=== PATIENT | female | born 1990 | race Caucasian/White ===

== ENCOUNTER 2018-01-19 00:58 | Emergency (ER) | payer MEDICAID ==
[~2018-01-19] VITALS: Ht 157.5 cm; Wt 63.5 kg
[~2018-01-19 00:58] MED LIST: ACYCLOVIR 200200 MG PO; SEROQUEL 50 MG50 M1 PO; ZOLOFT 50 MG TA50 M1 PO
[2018-01-19 01:48] LABS: ABSOLUTE BASOPHILS 0.1 thou/uL (0.0-0.2); ABSOLUTE EOSINOPHILS 0.1 thou/uL (0.0-0.7); ABSOLUTE LYMPHOCYTES 4.7 thou/uL (0.8-5.3); ABSOLUTE MONOCYTES 0.9 thou/uL (0.0-1.2); ABSOLUTE NEUTROPHILS 5.4 thou/uL (1.6-8.1); BASOPHILS 0.8 %; HEMATOCRIT 42.1 % (37.0-47.0); HEMOGLOBIN 14.1 gm/dL (12.0-15.0); LYMPHOCYTES 42.1 %; MCH 29.2 pg (26.0-34.0); MCHC 33.5 g/dL (28.0-37.0); MCV 87.2 fL (80.0-100.0); MONOCYTES 7.8 %; MPV 7.2 fl. (7.2-11.1); NUCLEATED RBCS 0 /100WBC; PLATELET COUNT* 292 thou/uL (150-400); POLYS 48.3 %; RBC 4.83 mil/uL (4.20-5.00); RDW-CV 12.7 % (10.5-14.5); WBC 11.2 thou/uL (4.0-11.0)
[2018-01-19 01:58] LABS: CREATININE 1.1 mg/dL (0.6-1.3); POTASSIUM 4.3 mmol/L (3.5-5.1)
[2018-01-19 02:03] LABS: ALBUMIN 3.7 g/dL (3.4-5.0); TOTAL BILIRUBIN 0.3 mg/dL (<0.1-1.0); TOTAL PROTEIN 7.3 g/dL (6.4-8.2)
[2018-01-19 03:15] VITALS: BP 142/98
== END 2018-01-19 03:15 | disposition home or self-care (01) ==
LOC: M.ERS 00:58
PROVIDERS: Family Medicine
DX: R51 Headache (principal)

== ENCOUNTER 2021-04-08 19:35 | Emergency (ER) | payer OTHER, MEDICAID ==
[~2021-04-08] VITALS: Ht 157.5 cm; Wt 68.0 kg
[2021-04-08 20:01] LABS: URINE BILIRUBIN NEGATIVE (Negative); URINE BLOOD 1+ (Negative); URINE CLARITY CLOUDY; URINE COLOR YELLOW; URINE GLUCOSE-RANDOM NEGATIVE (Negative); URINE KETONES NEGATIVE (Negative); URINE LEUKOCYTES-REFLEX 2+ (Negative); URINE NITRITE-REFLEX POSITIVE (Negative); URINE PROTEIN 1+ (Negative); URINE SPECIFIC GRAVITY 1.025 (1.005-1.030); URINE UROBILINOGEN 0.2 E.U./dl (0.2-1.0)
[2021-04-08 20:08] LABS: SQUAMOUS 4-10 Moderate /LPF (0-3); URINE WBC-REFLEX >25 Many /HPF (0-5)
[2021-04-08 20:09] LABS: CASTS None Seen /LPF (None Seen); CRYSTALS None Seen /LPF (None Seen); URINE RBC 0-2 Rare /HPF (0-2); WBC CLUMPS Few (None Seen)
[2021-04-08 20:10] LABS: MUCUS 0-3 Light strn/LPF (None Seen)
[2021-04-08] MEDS ORDERED: LEVOFLOXACIN500 MG PO (21:05)
[2021-04-08] MEDS ORDERED: DIFLUCAN150 M1 PO (21:05)
[2021-04-08 21:14] VITALS: BP 135/95
== END 2021-04-08 21:15 | disposition home or self-care (01) ==
LOC: M.ERS 19:35
PROVIDERS: Nurse Practitioner Family
DX: N39.0 Urinary tract infection, site not specified (principal); N89.8 Other specified noninflammatory disorders of vagina